=== PATIENT | male | born 1980 | race Caucasian/White ===

== ENCOUNTER 2019-03-23 14:43 | Outpatient (REF) | payer BC, SELFPAY ==
[2019-03-23 19:35] LABS: TSH 1.19 uIU/mL (0.36-3.74)
[2019-03-23 19:39] LABS: Hemoglobin A1C 5.2 % (4.5-6.2)
[2019-03-25 13:57] LABS: HIV-1/2 Ag & Ab Screen Negative (NEGAT)
[2019-03-25 17:12] LABS: Tissue Transglutaminase Ab IgA <1.2 U/mL
[2019-03-27 10:36] LABS: Hepatitis B Surface Ag Negative (NEGAT)
[2019-03-27 10:48] LABS: Hepatitis C Ab w Rflx HCV PCR Negative (NEGAT)
== END 2019-03-23 15:03 ==
LOC: NCHCN 14:43
PROVIDERS: PCP Internal Medicine; Visit Provider Internal Medicine
DX: R19.7 Diarrhea, unspecified (principal); R63.4 Abnormal weight loss; Z11.59 Encounter for screening for other viral diseases; Z11.4 Encounter for screening for human immunodeficiency virus [HIV]
CPT/HCPCS: 86803; 87340; 87389; 83036; 83516; 84443